=== PATIENT | male | born 1950 | race Caucasian/White ===

== ENCOUNTER 2018-07-14 13:01 | Outpatient (CLI) | payer OTHER ==
[2018-07-14 14:22] LABS: #Eosinphils 0.2 thou/uL (0.0-0.7); #Lymphocytes 1.8 thou/uL (1.20-3.40); #Monocytes 0.3 thou/uL (0.11-0.59); %Basophils 0.5 % (0.0-1.0); %Eosinophils 3.3 % (0.0-10.0); %Lymphocytes 33.5 % (21.0-51.0); %Monocytes 6.4 % (0.0-10.0); %Neutrophils 56.2 % (42.0-75.0); Hemoglobin 14.9 g/dL (14.0-18.0); Mean Corpuscular HGB CONC 33.3 g/dL (32.0-36.0); Mean Corpuscular Hemoglobin 31.7 pg (27.0-31.0); Mean Platelet Volume 8.8 fL (7.4-10.4); Platelet Count 160 thou/uL (130-400); RBC Distribution Width 12.6 % (11.5-14.5); White Blood Cell (WBC) Count 5.3 thou/uL (4.8-10.8)
[2018-07-14 14:46] LABS: Anion Gap 10 mmol/L (10-20); BUN (Urea Nitrogen) 9 mg/dL (8.4-25.7); Calc. Creatinine Clearance 0 mL/min (70-130); Calcium 9.1 mg/dL (7.8-10.44); Carbon Dioxide 25 mmol/L (23-31); Chloride 106 mmol/L (98-107); Estimated GFR-MDRD 49; Glucose 113 mg/dL (80-115); Potassium 3.8 mmol/L (3.5-5.1); Sodium 137 mmol/L (136-145)
--- NOTE | 2018-07-14 17:50 | RAD ---
PA AND LATERAL CHEST XRAY: DAET: 07/14/2018. HISTORY: Preoperative evaluation. FINDINGS: Cardiac silhouette is mildly enlarged. Pulmonary vasculature is within normal limits. There is mild bibasilar atelectasis. Lungs are otherwise clear. Minimal vascular calcifications are seen in the thoracic aorta. There are mild degenerative changes seen in the spine. There is wedge-shaped deform ity involving the L1-2 vertebral body likely related to a mild compression fracture of indeterminate age. IMPRESSION: 1. No acute cardiopulmonary process. 2. Mild cardiomegaly. 3. Bibasilar atelectasis. 4. Mild wedge-shaped compression of the L1 vertebral body of indeterminate age. POS: [facility]
--- NOTE | 2018-07-17 20:56 | EKG ---
Test Reason : Blood Pressure : / mmHG Vent. Rate : 064 BPM Atrial Rate : 064 BPM P-R Int : 166 ms QRS Dur : 160 ms QT Int : 452 ms P-R-T Axes : 054 062 002 degrees QTc Int : 466 ms Normal sinus rhythm Right bundle branch block T wave abnormality, consider lateral ischemia Abnormal ECG No previous ECGs available Confirmed by Keisha CARROLL ([id number]) on 07/17/2018 8:56:06 PM Referred By: JOSH Confirmed By:Keisha CARROLL
== END 2018-07-14 13:02 | disposition home or self-care (01) ==
LOC: LABBT 13:01
PROVIDERS: ATTEND Specialist
DX: Z01.818 Encounter for other preprocedural examination (principal); K40.90 Unilateral inguinal hernia, without obstruction or gangrene, not specified as recurrent; I51.7 Cardiomegaly; J98.11 Atelectasis; G95.20 Unspecified cord compression
CPT/HCPCS: 71046; 80048; 85025; 93005; 93010

== ENCOUNTER 2018-07-15 05:47 | Inpatient (IN) | payer OTHER ==
--- NOTE | 2018-07-13 14:39 | HP ---
: 1950 HISTORY OF PRESENT ILLNESS: Gonzalo Zavala is a 67-year-old male patient referred by Dr. Cortes for a r ight inguinal hernia. 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 He was, however, lifting a heavy hose, torquing his body and twisting wh en he felt a pop in his right groin and later experienced a hernia. He has had a CAT scan that demon strated a hernia. He notices a bulge in his right groin. This is a workmen's compensation. The pat ient denies any symptoms on his left side. Exam reveals a right inguinal hernia without left inguina l hernia on exam. Plan is for robotic right inguinal hernia repair with mesh outpatient. Risk of in fection, bleeding, reoperation, recurrence of hernia discussed. Possibility of a left inguinal herni a repair based on intraoperative findings discussed. Mesh will be used and he consents. ALLERGIES: None. SOCIAL HISTORY: Tobacco 1-1/2 packs per day. He has tried to quit numerous times, but unsuccessfull y. ALCOHOL: None. MEDICATIONS: Symbicort inhaler as needed. PAST SURGICAL HISTORY: Appendectomy as a child. He has had an inguinal hernia repair in [place] i n the late , 2-3 years ago in [facility] he had a left inguinal hernia repair. He canno t remember which one was done first. He believes mesh was used on both. REVIEW OF SYSTEMS: Ten point noncontributory. FAMILY HISTORY: Negative. PHYSICAL EXAMINATION: VITAL SIGNS: Weight 233 pounds, 68 inches, 152/75, 59, 98.2 degrees. LUNGS: Clear to auscultation, no wheezing. CARDIAC: Regular rate and rhythm without murmur or gallop. ABDOMEN: Soft, nontender, no masses. A scar right lower quadrant consistent with past inguinal dayana ia repair. Incisions in his mid abdomen transversely across the mid abdomen consistent with possible laparoscopic repair of one of his inguinal hernias. I cannot find good incisions in his groins lore cating an open hernia repair. EXTREMITIES: Unremarkable. No ankle edema, no lymphadenopathy. NEURO: Neurologically intact. No focal deficits. : On standing, he has a right inguinal hernia enlarging on Valsalva. His testicles are normal. L eft groin without hernia evident on standing Valsalva. ASSESSMENT AND PLAN: 1. Right inguinal hernia, recurrent, would recommend mesh repair robotically risk possibility of ope n procedure discussed. Risk of infection, bleeding, reoperation, recurrence discussed. He understan ds these issues and consents. 2. Tobacco abuse. Encouraged tobacco cessation, if not cutting down on intake a few days prior to t he operation. 3. Negative review of systems for any cardiac symptomatology. He did have a cardiac stress test 4-5 years ago and is asymptomatic from a cardiac standpoint.
[2018-07-14 13:19] VITALS: BMI 35.2
[2018-07-15] MEDS ORDERED: Ketorolac Tromethamine 30 MG/ML VIAL ONE (06:58)
[2018-07-15] MEDS ORDERED: CEFAZOLIN/Water 2 GM/20 ML SYRINGE ONE (06:58)
[2018-07-15] MEDS ORDERED: Fentanyl 100 MCG/2 ML VIAL ONE ×4 (08:58→13:07)
[2018-07-15] MEDS ORDERED: Bupivacaine/Epinephrine 0.25% 30 ML VIAL ONE (08:59)
[2018-07-15] MEDS ORDERED: HYDROmorphone 2 MG/ML VIAL ONE (08:59)
[2018-07-15] MEDS ORDERED: Lidocaine 1% PF 5 ML VIAL ONE (10:20)
[2018-07-15] MEDS ORDERED: ePHEDrine/0.9% NaCl/PF SYRINGE 50 mg/10 ml ONE (10:20)
[2018-07-15] MEDS ORDERED: Ondansetron HCl/PF 4 MG/2 ML Vial ONE (10:20)
[2018-07-15] MEDS ORDERED: PROPOFOL 200 MG/20 ML VIAL ONE (10:20)
[2018-07-15] MEDS ORDERED: Iothalamate Meglumine 60% 50 ML VIAL FS ONE (11:53)
[2018-07-15] MEDS ORDERED: SUGAMMADEX SODIUM 500 MG/5 ML VIAL ONE (13:04)
[2018-07-15] MEDS ORDERED: Bacitracin Zinc Ointment 30 gm TUBE ONE (13:33)
--- NOTE | 2018-07-15 13:51 | RAD ---
FRONTAL VIEW PELVIS: Two fluoroscopic views of the pelvis are performed, magnified and centered about the right supraaceta bular region. INDICATION: Bladder trauma. FINDINGS: There are metallic coils overlying the imaged right hemipelvis. Osseous degenerative change present. Evaluation is otherwise limited on the provided magnified intraoperative fluoroscopic views. IMPRESSION: Intraoperative fluoroscopic imaging of the pelvis, as above. POS: [facility]
[2018-07-15] MEDS ORDERED: hydrALAZINE 20 MG/ML VIAL SLOW IVP PRN (13:57)
[2018-07-15] MEDS ORDERED: Ondansetron ODT 4 MG TAB PO PRN ×2 (13:57→20:43)
[2018-07-15] MEDS ORDERED: HYDROmorphone 2 MG/ML VIAL SLOW IVP PRN (13:58)
[2018-07-15] MEDS ORDERED: Meperidine HCl/PF 25 MG/ML VIAL SLOW IVP PRN (13:58)
[2018-07-15] MEDS ORDERED: Promethazine HCl 25 MG/ML VIAL SLOW IVP PRN (13:58)
[2018-07-15] MEDS ORDERED: Ondansetron HCl/PF 4 MG/2 ML Vial IVP PRN (13:58)
[2018-07-15] MEDS ORDERED: Promethazine HCl 25 MG/ML VIAL IM PRN (13:58)
[2018-07-15] MEDS ORDERED: Ibuprofen 600 MG TAB PO PRN (14:01)
[2018-07-15] MEDS ORDERED: traMADol HCl 50 MG TAB PO PRN ×2 (14:01)
[2018-07-15] MEDS: Sodium Chloride 0.45% 1,000 ML IV SCH (17:27)
[2018-07-15] MEDS ORDERED: Ondansetron ODT 8 MG TAB PO PRN (20:43)
[2018-07-15] MEDS: Enoxaparin Sodium 40 MG/0.4 ML SYRINGE SC SCH ×2 (21:34→21:42)
[2018-07-15] MEDS: Famotidine 20 MG TAB PO SCH (21:34)
--- NOTE | 2018-07-15 22:41 | OP ---
DATE OF PROCEDURE: 07/15/2018 PREOPERATIVE DIAGNOSIS: Right inguinal hernia. POSTOPERATIVE DIAGNOSIS: Right inguinal hernia with a bladder injury intraoperatively. PROCEDURE PERFORMED: Robotic right inguinal hernia repair with mesh. Intraoperative appreciation at the end of the operation of air and blood in the Mak bag, requiring Urology consultation, Dr. Cheryl cartagena, and anterior bladder repair with retrograde ureterography fluoroscopy noting intact right ureter and removal of mesh and placement of drain by Dr. Springer. SURGEON: Bill Hahn M.D. ANESTHESIA: General. Local 0.5% Marcaine with epinephrine 30 mL. PROCEDURE IN DETAIL: The patient was taken to the operating room where under general anesthesia in s upine position, the abdomen was prepped with ChloraPrep and draped in routine fashion. Left to midli ne incision made. Pneumoperitoneum to 15 mmHg obtained with the Veress needle, replacing it with an 11 balloon port. Robot scope placed and bilateral mid lateral abdominal incision made. An 8 mm port s placed. Robot was docked and robotic exploration undertaken. The left pelvis was without hernia. There were adhesions of omentum from the patient's prior open appendectomy, taken down with the robo t. This cleared the way to appreciate a recurrent indirect right inguinal hernia. From the anterior iliac spine transversely to the midline, the peritoneum was scored, taken down, dissected free, crea ting a flap of peritoneum and dissecting the hernia sac free from the cord structures. Hernia sac di ssected free after a lateral medial dissection performed. In performing the dissection, I did not se e any evidence of any other mesh laparoscopically. Then, was able to take a large sheet of Bard 3DMa x mesh, properly oriented it, placing across the abdominal wall, securing the mesh to Raghu's ligame nt with a 2-0 Vicryl suture and allowed the mesh to cover the cord structures adequately and secure t he mesh to the anterior abdominal wall just lateral to the inferior epigastric vessels which were kep t free of harm, approximating the mesh to the abdominal wall with a 2-0 Vicryl loosely. At this poin t, peritoneal flap closed after noting good hemostasis. Flap closed with continuous suture of #2 V-L oc suture. At the end of the operation, it was appreciated if the patient had air and blood in his F oley bag. I then consulted Urology, Dr. Payton Springer, presented to the room and cystoscopy undertaken and will be dictated by her. She basically performed a cystoscopy and retrograde right ureterography noting t he ureter to be intact on the right. There is some blood in the bladder, but could not be identified well as we cannot see anteriorly. For this reason, Dr. Springer made suprapubic midline incision and bladder exploration undertaken and anterior defect in the bladder appreciated just beneath previously placed mesh. I did not see this mesh robotically laparoscopically. This mesh was adherent to the b ladder. As this was dissected free and the bladder inflated with saline, Dr. Springer appreciated leak age through at least 2 small defects that were closed in layers and then bladder tested and noted to be intact. The new mesh was removed to allow access and prevent infection pelvis across the anterior bladder. The patient tolerated the procedure well. Fascia had been approximated with P DS sutures, skin and subcutaneous tissues, hemostasis with the cautery and skin approximated with 4-0 Monocryl. It should be mentioned that the trocars had been removed, pneumoperitoneum reduced and the trocars in cisions closed with interrupted subdermal 4-0 Monocryl and DermaGlue applied prior to the urological repair.
[2018-07-16] MEDS: Sodium Chloride 0.45% 1,000 ML IV SCH ×2 (01:58→09:02)
[2018-07-16] MEDS ORDERED: PROVENTIL INHALER 6.7 G (200 INHALATIONS) INH PRN (05:37)
[2018-07-16] MEDS ORDERED: predniSONE 20 MG TAB PO SCH (05:45)
[2018-07-16] MEDS ORDERED: PROVENTIL INHALER 6.7 G (200 INHALATIONS) INH SCH (05:45)
[2018-07-16 06:09] LABS: #Lymphocytes 1.4 thou/uL (1.20-3.40); #Monocytes 0.4 thou/uL (0.11-0.59); #Neutrophils 5.5 thou/uL (1.40-6.50); %Basophils 0.2 % (0.0-1.0); %Eosinophils 0.5 % (0.0-10.0); %Lymphocytes 19.2 % (21.0-51.0); %Monocytes 5.8 % (0.0-10.0); %Neutrophils 74.2 % (42.0-75.0); Hemoglobin 13.6 g/dL (14.0-18.0); Mean Corpuscular HGB CONC 32.8 g/dL (32.0-36.0); Mean Corpuscular Hemoglobin 31.9 pg (27.0-31.0); Mean Corpuscular Volume 97.1 fL (78.0-98.0); Mean Platelet Volume 9.5 fL (7.4-10.4); Platelet Count 151 thou/uL (130-400); RBC Distribution Width 12.6 % (11.5-14.5); Red Blood Cell (RBC) Count 4.27 mill/uL (4.70-6.10); White Blood Cell (WBC) Count 7.4 thou/uL (4.8-10.8)
[2018-07-16 06:10] LABS: Anion Gap 12 mmol/L (10-20); BUN (Urea Nitrogen) 10 mg/dL (8.4-25.7); Calc. Creatinine Clearance 79 mL/min (70-130); Calcium 8.3 mg/dL (7.8-10.44); Carbon Dioxide 21 mmol/L (23-31); Chloride 107 mmol/L (98-107); Estimated GFR-MDRD 52; Glucose 105 mg/dL (80-115); Sodium 136 mmol/L (136-145)
[2018-07-16] MEDS ORDERED: Budesonide 0.5 MG/2 ML NEB NEB SCH (06:30)
[2018-07-16] MEDS: Famotidine 20 MG TAB PO SCH (08:20)
[2018-07-16] MEDS ORDERED: Polyethylene Glycol 3350 17 GM Packet PO SCH (09:00)
--- NOTE | 2018-07-16 09:35 | RAD ---
CHEST 1 VIEW: HISTORY: Shortness of breath. COMPARISON: Chest 07/14/2018. FINDINGS: Heart size is enlarged. Mild edema. Small effusions. IMPRESSION: Cardiomegaly with small effusions and mild edema. POS: [facility]
[2018-07-16] MEDS ORDERED: Acetaminophen 1,000 MG in Premix Bag 1 BAG IVPB SCH (12:15)
[2018-07-16 12:31] VITALS: BP 98/62; TEMP 99.9
--- NOTE | 2018-07-16 15:16 | CON ---
DATE OF CONSULTATION: 07/16/2018 HISTORY OF PRESENT ILLNESS: Patient is a 67-year-old male who was consulted on intraoperatively, so was unable to do a consultation prior given a bladder injury during robotic right inguinal hernia rep air that ultimately required being taken down in order to adequately repair and leave a drain of the bladder injury. Overnight, he has done well. He has complaints of pain and a coughing fit last night that he felt wa s very awful and is using that as an excuse to not take deep breaths or cough now. We reviewed in [facility] pulmonary toilet and now that is how he is going to be able to be safely discharged. He otherwi se ambulated without difficulty and tolerated p.o. intake. Normally he has frequency q. 2 to 5 hours depending on how much he hydrates and nocturia x2. He lissa es any lower urinary tract symptoms, but does admit to occasional hesitancy with strain to start but otherwise a good stream and completely empties. He denies any hematuria, or prior infections. He jenkins d a history of kidney stones that he past 40 years ago, none since or before, he did not require carroll tment. He does report normal PSA and prostate cancer screening. PAST MEDICAL HISTORY: Significant for COPD. PAST SURGICAL HISTORY: Bilateral knees after trauma; appendectomy; bilateral inguinal hernia, the ri ght 20 years prior and left few years ago. MEDICATIONS: He denies any aspirin or blood thinners. He does use inhalers. SOCIAL HISTORY: He has 2-1/2 pack a day smoking history x50 years and reports he quit as of yesterda y. He does not drink or use drugs. FAMILY HISTORY: Significant for dad at 87. Mom at 92, both of them actually smoked. ALLERGIES: None. REVIEW OF SYSTEMS: He has a normal smoker's cough, but nothing new other than the coughing fit last evening. He has no numbness, tingling, no change in bowels. He has normal movements on a regular ba sis. He has no chest pain, shortness of breath. PHYSICAL EXAMINATION: GENERAL: T-max 99.8, satting 94% on 2 liters nasal cannula. VITAL SIGNS: Blood pressure is stable at 116/73 and heart rate 66. He is at 1125 out from the urine which is draining clear yellow and serosanguineous output from the KENNETH of 60. ABDOMEN: Softly distended. Incisions clean, dry, and appropriately tender. The Haim-Alfosno drain was removed by myself and I managed to place him on this. LABORATORY DATA: Values reveal a normal CBC and a creatinine of 1.37, which is actually improved to 1.44, which is most likely his baseline. ASSESSMENT: We have a 67-year-old male status post right robotic inguinal hernia repair with bladder injury requiring bladder repair and drain and takedown of the repair, now has an indwelling catheter and the Haim-Alfonso drain removed. The catheter will remain 10 days and we discussed getting an o utpatient cystogram before removal. I will set this up with my office over the next coming weekend, reviewed it all with the patient. He can go home with an indwelling catheter that can be switched to a leg bag and large bag depending on the day and night. The nurses will review all of this with him , but send him home on a prophylactic dose of antibiotic to try to keep his urine sterile during the catheter time period. Once he is no longer requiring oxygen, he will be safe for discharge.
[2018-07-18 10:56] LABS: Actual Bicarbonate (HCO3a) 22.7 mEq/L (22-28); Analyzer IN Cardio OR; Base Excess (BEa) -3.3 mEq/L (-2.0 to +3.0); CO2 Tension 44.6 mmHg (35.0-45.0); Calcium, Ionized 1.09 mmol/L (1.12-1.30); Carboxyhemoglobin (COHb) 4.4 gm% (0.0-3.0); Hemoglobin (Hb) 13.9 g/dL (14.0-18.0); Potassium - ABG Lab 5.05 mmol/L (3.70-5.30); Puncture Site ALINE; pH, Arterial 7.33 (7.35-7.45)
--- NOTE | 2018-07-19 09:33 | OP ---
DATE OF SERVICE: 07/15/2018 PREOPERATIVE DIAGNOSIS: Presumed bladder injury. POSTOPERATIVE DIAGNOSIS: Presumed bladder injury. PROCEDURES PERFORMED: Cystoscopy, right retrograde pyelogram, open repair of cystotomy. SURGEON: Dr. Payton Springer. MANAGER PHARMACEUTICAL: Dr. Hahn. COMPLICATIONS: None. SPECIMENS: None. DRAINS REMAINING: Haim-Alfonso and 16-Ivorian Mak. BLOOD LOSS: Minimal. INDICATIONS: The patient is a 67-year-old male who is a patient of Dr. Hahn' s. He had just completed a robotic right inguinal hernia repair and nearing the end noticed that there was significant blood and air in the Mak bag, so I was consulted. We reviewed his dissection and when or where the injury occurred. This was not definitively known, but most likely to be the bladder as opposed to ureter. But I wanted to perform a retrograde pyelogram to ensure no ureteral injury. Dr. Hahn had not dissected on the left, so I did not feel a left RGP was indicated. The patient was placed in lithotomy position, prepped and draped in sterile fashion. Using a 21-Ivorian cystoscope and 30-degree lens, urethra was traversed and the bladder inspected. It was difficult to fully evaluate the bladder because it did not expand given what was presumably an injury; however, the floor of the bladder and the ureteral orifices appeared normal and without any concern for injury. Retrograde pyelogram was then performed on the right. There was no need to do on the left. On the right, it showed a normal caliber ureter with easy and normal filling as well as immediate drainage from that side. So the ureter was uninjured and presumably the injury was at the dome and anterior portion of the bladder as this was difficult to see due to both some bleeding as well as insufficient filling. For this reason, it was determined that the injury was most likely intraperitoneal and an open incision would be needed in order to do an appropriate repair. He was returned supine and prepped and draped in sterile fashion. An infraumbilical incision was made. The rectus muscle fascia was incised and taken down to the prevesical space. Dissection continued and noted there was a prior mesh that was well incorporated in scar tissue on the right. I partially dissected this out in order to find an adequate plane, and then we encountered the new mesh that had been placed by Dr. Hahn. At this point, with an assumed injury to the bladder, it was appropriate to take the mesh out as a repair would also require a post-op drain. The mesh was removed. Then inspection of the bladder was made by filling the bladder with saline from the Mak. A 2cm cystotomy was note, and this was repaired with 3-0 aand 2-0 Vicrayl. Then filling of the bladder revealed further cystotomy that initially appeared NOT to connect to the previously repair site, so this was repaired as well--again with 3-0 Vicryl for the first layer including the mucosa and 2-0 Vicryl for the second layer. The more inferior/caudal portion of the bladder was quite thin. On filling the bladder for the third time, we noted there was an area of injury between the 2 repairs; presumably this was a larger defect than originally identified and likely was one long injury--intotal measuring 6- 8cm. So this between area was also repaired in similar fashion with 3-0 and 2- 0 Vicryl. Yet again, Mak was filled to close to 200 mL and no obvious leak was noted at this time. A Haim-Alfonso was placed through the left lower quadrant and lay along the suprapubic area of reapir. The fascia was reapproximated using 1-0 PDS in running fashion meeting in the middle. The skin was reapproximated in subcuticular fashion. The Mak catheter was then placed to gravity. The patient tolerated the procedure well and was then awakened and transferred to PACU in stable condition. JESSE
== END 2018-07-16 15:36 | disposition home or self-care (01) | DRG 345 ==
LOC: SDC 05:47 → SURG B 13:57
PROVIDERS: ADMIT Specialist; ATTEND Specialist
PROC: 0YU54JZ Supplement Right Inguinal Region with Synthetic Substitute, Percutaneous Endoscopic Approach (ICD-10-PCS; principal; 2018-07-15)
PROC: 0TQB8ZZ Repair Bladder, Via Natural or Artificial Opening Endoscopic (ICD-10-PCS; 2018-07-15)
PROC: 8E0W4CZ Robotic Assisted Procedure of Trunk Region, Percutaneous Endoscopic Approach (ICD-10-PCS; 2018-07-15)
PROC: BT1D1ZZ Fluoroscopy of Right Kidney, Ureter and Bladder using Low Osmolar Contrast (ICD-10-PCS; 2018-07-15)
DX: K40.91 Unilateral inguinal hernia, without obstruction or gangrene, recurrent (principal); S37.20XA Unspecified injury of bladder, initial encounter; J44.9 Chronic obstructive pulmonary disease, unspecified; F17.210 Nicotine dependence, cigarettes, uncomplicated
CPT/HCPCS: 36415; 36416; 71045; 72170; 76001; 80048; 82805; 85025; 94640; C1758; C1781; J0131; J1170; J1650; J1885; J1956; J2001; J2405; J2704; J3010; J7506; J7620; J7626; Q9961; Q9968

== ENCOUNTER 2018-07-25 09:05 | Outpatient (CLI) | payer OTHER ==
--- NOTE | 2018-07-25 12:01 | RAD ---
CYSTOGRAM: History Bladder injury while having a hernia repair. COMPARISON: None. EXPOSURE: 2 minutes. 3372.7 mGy*^m2. FINDINGS: In a retrograde fashion the patient was administered a total of 200 cc of Isovue 300-M contrast to op acity the urinary bladder. FINDINGS: The initial alteration tailor radiograph demonstrates hernia change in the right inguinal region. Contrast opacifies a normal-appearing urinary bladder. No filling defects. No leak or extravasation . Post-drainage images demonstrate minimal residual contrast in the urinary bladder. No leak or ext ravasation. Mak catheter was removed. A small amount of contrast does remain in the urinary bladder after moni austin of Mak catheter. IMPRESSION: No leak or extravasation. POS: [facility]
== END 2018-07-25 09:06 | disposition home or self-care (01) ==
LOC: RAD 09:05
PROVIDERS: ATTEND Urology
DX: Z48.816 Encounter for surgical aftercare following surgery on the genitourinary system (principal); Z98.890 Other specified postprocedural states; Z96.0 Presence of urogenital implants
CPT/HCPCS: 51600; 74430

== ENCOUNTER 2018-08-24 10:54 | Day surgery (SDC) | payer OTHER ==
[2018-08-18 11:02] VITALS: BMI 35.2
--- NOTE | 2018-08-19 02:58 | HP ---
HISTORY OF PRESENT ILLNESS: Gonzalo Zavala is a 68-year-old male follow up after robotic repair, right i nguinal hernia with mesh on 07/15/2018. During that operation, the mesh had to be removed after an o pen operation required for bladder repair. Patient has recovered and the pain in his right hip area has resolved, though he has some mild paresthesias in right thigh. He wishes to proceed with recurre nt right inguinal hernia repair, open fashion with mesh. Patient initially had previous endoscopic robotic repair in an outside facility several years ago. Yash weinstein later told me, although not jinformed initially that during that operation, he sustained the bladde r injury had to wear a catheter for 2 weeks. He did not tell me about this incident until after he s ustained a several bladder injury during his robotic right inguinal hernia repair on 07/15/2018. I s uspect during that operation, the robotic arm retracted the bladder, which was fixated the mesh resul tommy in a tear requiring open repair and removal of the mesh. He had repair of his bladder and wear F oley catheter for 2 weeks had it removed and seen Dr. Pimentel or Dr. Springer and is now voiding wi thout problems. He is ready to have an open repair of his right inguinal hernia repair recurrent wit h mesh. Risk of infection, bleeding, reoperation discussed, he consents. MEDICATIONS: Symbicort, ProAir. PAST MEDICAL AND SURGICAL HISTORY: Umbilical hernia x2, repair of bilateral inguinal hernias years p ast. More recent repair 07/15/2018 requiring mesh removal and repair of his bladder. SOCIAL HISTORY: Patient is employed once his hernia repaired as soon as possible. TOBACCO: 1-1/2 packs per day for 50 years. MEDICATIONS: None. REVIEW OF SYSTEMS: Noncontributory. Patient accompanied by his daughter. PHYSICAL EXAMINATION: VITAL SIGNS: 233 pounds, 6 feet 8 inches, 145/69, 60, 97.9 degrees. HEAD, EYES, EARS, NOSE, AND THROAT: Unremarkable. LUNGS: Clear to auscultation. CARDIAC: Regular rate and rhythm without murmur given. ABDOMEN: Soft, nontender. Robotic incisions well healed and right inguinal hernia present. Left gr oin without hernia. Testicles normal. ASSESSMENT AND PLAN: Recurrent right inguinal hernia. Plan repair, open fashion. Risk and benefits explained. He consents.
[2018-08-24] MEDS ORDERED: CEFAZOLIN 2 GM/50 ML BAG ONE (11:43)
[2018-08-24] MEDS ORDERED: Ketorolac Tromethamine 30 MG/ML VIAL ONE ×2 (11:43→17:22)
[2018-08-24] MEDS ORDERED: Bupivacaine/Epinephrine 0.25% 30 ML VIAL ONE (13:37)
[2018-08-24] MEDS ORDERED: Lidocaine 2% PF 5 ML VIAL ONE (15:06)
[2018-08-24] MEDS ORDERED: Bupivacaine HCl 0.5%/Epinephrine 1:200,000/PF 30 ml Vial ONE (15:06)
[2018-08-24] MEDS ORDERED: Fentanyl 100 MCG/2 ML VIAL ONE (15:15)
[2018-08-24] MEDS ORDERED: Lidocaine 1% PF 5 ML VIAL ONE (17:22)
[2018-08-24] MEDS ORDERED: PROPOFOL 200 MG/20 ML VIAL ONE (17:22)
[2018-08-24] MEDS ORDERED: Dexamethasone 20 MG/5 ML VIAL ONE (17:22)
[2018-08-24] MEDS ORDERED: Ondansetron PF 4 MG/2 ML Vial ONE (17:22)
[2018-08-24] MEDS ORDERED: Glycopyrrolate 0.2 MG/ML 5 ML SYRINGE ONE (17:22)
[2018-08-24] MEDS ORDERED: Metoclopramide HCl 10 MG/2 ML VIAL ONE (17:22)
--- NOTE | 2018-08-24 23:45 | OP ---
DATE OF PROCEDURE: 08/24/2018 PREOPERATIVE DIAGNOSIS: Recurrent right inguinal hernia. POSTOPERATIVE DIAGNOSIS: Recurrent right inguinal hernia. PROCEDURE: Open repair indirect recurrent right inguinal hernia. SURGEON: Bill Hahn M.D. ANESTHESIA: General. Local 0.5% Marcaine with epinephrine, 30 mL mixed with 2% Xylocaine, 10 mL. PROCEDURE: The patient was taken to the operating room where under general anesthesia abdomen was cl ipped of hair, prepared with ChloraPrep, draped in routine fashion. Ioban was used. Incision made i n the right groin carried down through skin and subcutaneous tissue. External oblique opened in the direction of its fibers to the external ring and cord structures dissected free. Cremasteric fibers were taken down. Large lipoma of the cord dissected free along with hernia sac hernia sac clos ed with a pursestring Nurolon. A previous hernia repair had been previously formed as old mesh oblit erating the preperitoneal space, but I dissected as much as free possible. I then the underlay porti on of the PHS mesh trimmed down to tolerate this and placing preperitoneal space and onlay portion pl aced in the floor of canal placing the extended portion high in the inguinal canal. The slit made in the mesh laterally, brought to the cord structures fashioning synthetic internal ring, approximating the mesh to Poupart's ligament sutures of 3-0 Nurolon. Inferiorly, the mesh secured to Raghu's wit h 0 Nurolon. External oblique closed with continuous suture of 3-0 Monocryl as good hemostasis noted . Subcutaneous tissues approximated with 3-0 Monocryl, skin with subdermal 4-0 Monocryl and DermaGlu e applied. Local anesthetic below Camper's fascia and the skin and subcutaneous tissue divya avila.
== END 2018-08-24 18:30 | disposition home or self-care (01) ==
LOC: SDC 10:54
PROVIDERS: ATTEND Specialist
PROC: 0YU50JZ Supplement Right Inguinal Region with Synthetic Substitute, Open Approach (ICD-10-PCS; principal; 2018-08-24)
DX: K40.90 Unilateral inguinal hernia, without obstruction or gangrene, not specified as recurrent (principal); F17.200 Nicotine dependence, unspecified, uncomplicated; J44.9 Chronic obstructive pulmonary disease, unspecified; Z79.899 Other long term (current) drug therapy
CPT/HCPCS: C1781; J0131; J0670; J1100; J1885; J2001; J2405; J2704; J2765; J3010